=== PATIENT | female | born 1945 | race Caucasian/White ===

== ENCOUNTER 2016-05-29 05:16 | Day surgery (SDC) | payer OTHER ==
[2016-05-29 06:10] LABS: MANUAL DIFF NEEDED? NO
[2016-05-29 06:14] LABS: BASO% 0.4 % (0.0-0.8); EOS# 0.17 X1000 (0.0-0.7); EOS% 3.1 % (0.0-10.0); HEMATOCRIT 34.4 % (37.0-47.0); HEMOGLOBIN 11.5 g/dL (12.0-16.0); LYMPH% 26.9 % (20.5-51.1); MCH 27.8 PG (27-31); MCHC 33.4 g/dL (33-37); MCV 83.1 FL (81-99); MONO# 0.71 X1000 (0.11-0.59); MONO% 12.7 % (1.7-9.3); MPV 10.6 FL (7.4-10.4); NEUT% 56.9 % (42.2-75.2); PLT 178 X1000 (130-400); RBC 4.14 XMIL (4.2-5.4)
[2016-05-29] MEDS ORDERED: LR 1,000 ML ONE (06:18)
[2016-05-29] MEDS ORDERED: KEFZOL 1 GM/D5W 50 ML ONE (06:18)
[2016-05-29 06:32] LABS: URINE MICRO REVIEW NEEDED? NO; URINE SOURCE VOIDED
[2016-05-29 06:33] LABS: AGAP 14; ALBUMIN 3.9 g/dL (3.5-5.0); ALKALINE PHOSPHATASE 70 U/L (32-104); BUN 23 mg/dL (8-22); CALCIUM 9.2 mg/dL (8.8-10.2); CHLORIDE 100 mmol/L (98-107); COSMO 283; GOT 26 U/L (10-30); GPT 24 U/L (10-36); POTASSIUM 3.7 mmol/L (3.5-5.1); SODIUM 140 mmol/L (136-145); TCO2 26 mmol/L (25-35); TOTAL BILIRUBIN 0.51 mg/dL (0.20-1.00); TOTAL PROTEIN 6.7 g/dL (6.3-8.3)
[2016-05-29] MEDS ORDERED: FENTANYL ONE (06:36)
[2016-05-29] MEDS ORDERED: DIPRIVAN 1% ONE (06:37)
[2016-05-29 06:44] LABS: BILIRUBIN URINE NEGATIVE (NEGATIVE); BLOOD URINE NEGATIVE (NEGATIVE); COLOR YELLOW; GLUCOSE URINE NEGATIVE (NEGATIVE); LEUKOCYTES URINE LARGE (NEGATIVE); NITRITE URINE NEGATIVE (NEGATIVE); PROTEIN URINE NEGATIVE (NEGATIVE); SP GRAVITY URINE 1.014; TURBIDITY URINE CLEAR (CLEAR); UROBILINOGEN URINE NORMAL (NORMAL)
[2016-05-29 06:45] LABS: UR EPITHELIAL CELLS <10 /HPF (<10); URINE BACTERIA NEGATIVE /HPF; URINE RBC <10 /HPF (<10)
[2016-05-29] MEDS ORDERED: NORCO-10 ONE (08:23)
--- NOTE | 2016-05-29 08:25 | OPERATIVE NOTE ---
PROCEDURE DATE: 05/29/2016 PREOPERATIVE DIAGNOSIS: Probable brown recluse bite right lower abdominal wall. POSTOPERATIVE DIAGNOSIS: Probable brown recluse bite right lower abdominal wall. PROCEDURE: Excision with placement of wound vacuum assisted closure 12 x 6 x 4 cm. SURGEON: Guru Treadwell MD DESCRIPTION OF PROCEDURE: The patient was brought to the operating room. After satisfactory induction of IV and LMA anesthesia, her abdomen was prepped and draped in the appropriate manner. The eschar was ellipsed out vertically 12 x 6 x 4 cm. Hemostasis was obtained by electrocautery. The wound VAC was deployed with a satisfactory seal. The patient was awakened and extubated in the operating room and transferred to recovery. ESTIMATED BLOOD LOSS: Around 5-10 mL. DISPOSITION: She will return in 5 days for secondary wound closure.
[2016-05-29] MEDS ORDERED: ZOFRAN ONE (08:34)
[2016-05-29] MEDS ORDERED: DECADRON ONE (08:35)
[2016-05-29] MEDS ORDERED: XYLOCAINE-MPF 2% ONE (08:35)
[2016-05-29 09:47] VITALS: BP 118/76
== END 2016-05-29 10:15 | disposition home or self-care (01) ==
LOC: OR 05:16
PROVIDERS: ATTEND Surgery
DX: T63.331A Toxic effect of venom of brown recluse spider, accidental (unintentional), initial encounter (principal); I10 Essential (primary) hypertension; M81.0 Age-related osteoporosis without current pathological fracture; Z85.3 Personal history of malignant neoplasm of breast
CPT/HCPCS: 80053; 81001; 85025; 88304; J0690; J1100; J2405; J3010; J7120

== ENCOUNTER 2016-06-03 05:18 | Day surgery (SDC) | payer OTHER ==
[2016-06-03] MEDS ORDERED: KEFZOL 1 GM/D5W 50 ML ONE (05:31)
[2016-06-03] MEDS ORDERED: LR 1,000 ML ONE (05:31)
[2016-06-03] MEDS ORDERED: MARCAINE 0.25% PF/EPI 1:200,000 ONE (07:05)
[2016-06-03] MEDS: DILAUDID ONE ×2 (07:38→07:44)
--- NOTE | 2016-06-03 07:51 | OPERATIVE NOTE ---
PROCEDURE DATE: 06/03/2016 PREOPERATIVE DIAGNOSIS: Brown Recluse spider bite, abdominal wall, status post debridement with wound vacuum assisted closure. PROCEDURE: Wound vacuum assisted closure removal and secondary wound closure. SURGEON: Guru Treadwell MD DESCRIPTION OF PROCEDURE: The patient was brought to the operating room. After satisfactory induction of IV and LMA anesthesia, the old wound VAC in the right lower quadrant of the abdomen was removed. There was good granulation tissue. The wound was prepped and draped in the appropriate manner, infiltrated with 20 mL of Marcaine with epinephrine. The subcutaneous was closed with 0 Vicryl and the skin itself with stainless steel clips. Sterile dressing was applied. She was awakened and extubated in the operating room and transferred to recovery. ESTIMATED BLOOD LOSS: About 5 mL.
[2016-06-03 09:09] VITALS: BP 125/53
[2016-06-03] MEDS ORDERED: XYLOCAINE-MPF 2% ONE (09:25)
[2016-06-03] MEDS ORDERED: DIPRIVAN 1% ONE (13:52)
== END 2016-06-03 09:11 | disposition home or self-care (01) ==
LOC: OPS 05:18
PROVIDERS: ATTEND Surgery
DX: T63.331D Toxic effect of venom of brown recluse spider, accidental (unintentional), subsequent encounter (principal); I10 Essential (primary) hypertension; Z85.3 Personal history of malignant neoplasm of breast; M81.0 Age-related osteoporosis without current pathological fracture
CPT/HCPCS: J0690; J1170; J7120